=== PATIENT | female | born 1930 | race Caucasian/White ===

== ENCOUNTER 2016-04-28 11:01 | Inpatient (IN) | payer OTHER ==
--- NOTE | 2016-04-28 11:15 | CPEKG ---
Heart Rate: 80 RR Interval: 750 P-R Interval: 156 QRSD Interval: 86 QT Interval: 356 QTC Interval: 411 P [place]: 83 QRS [place]: 76 T Wave [place]: -52 EKG Severity - ABNORMAL ECG - EKG Impression: SINUS RHYTHM EKG Impression: NONSPECIFIC T ABNORMALITIES, DIFFUSE LEADS EKG Impression: similar to previous Electronically Signed By: Edmund Gonzales 28-Apr-2016 12:48:02
[2016-04-28] MEDS ORDERED: NS 1,000 ML IV ONE ×2 (11:17→12:48)
[2016-04-28 11:39] LABS: ANION GAP 14 mEq/L (8-16); CALCIUM 9.3 mg/dL (8.5-10.4); CARBON DIOXIDE 21 mEq/l (22-31); CHLORIDE 104 mEq/L (97-110); CREATININE 0.9 mg/dL (0.6-1.0); GLOMERULAR FILTRATION RATE 59; GLUCOSE 101 mg/dL (70-100); POTASSIUM 4.5 mEq/L (3.5-5.2); SODIUM 139 mEq/L (134-144)
[2016-04-28 11:59] LABS: % IMMATURE GRANULYOCYTES 0.5 % (0.0-1.1); ABSOLUTE IMMATURE GRANULOCYTES 0.08 10^3/uL (0.00-0.10); ADD DIFF? NO; ADD MORPH? NO; ADD SCAN? NO; ATYPICAL LYMPHOCYTE FLAG 0 (0-99); FRAGMENT RBC FLAG 0 (0-99); HEMATOCRIT 36.8 % (38.0-47.0); HEMOGLOBIN 12.6 g/dL (12.6-16.3); LEFT SHIFT FLG 10 (0-99); LIPEMIA HEMOLYSIS FLAG 90 (0-99); MEAN CELL HEMOGLOBIN 31.3 pg (27.9-34.1); MEAN CELL HEMOGLOBIN CONCENTR. 34.2 g/dL (32.4-36.7); MEAN CELL VOLUME 91.3 fL (81.5-99.8); PLATELET CLUMPS FLAG 0 (0-99); PLATELET COUNT 247 10^3/uL (150-400); RED BLOOD CELL COUNT 4.03 10^6/uL (4.18-5.33); RED CELL DISTRIBUTION WIDTH 13.2 % (11.5-15.2)
[2016-04-28 12:03] LABS: TROPONIN I 0.019 ng/mL (0-0.034)
--- NOTE | 2016-04-28 12:52 | EDPHY ---
H & P Stated Complaint: SYNCOPAL Time Seen by Provider: 04/28/16 12:39 HPI/ROS: CHIEF COMPLAINT: Syncope HISTORY OF PRESENT ILLNESS: The patient is an 86-year-old female who comes to the emergency department with her after a syncopal event. She was in an exercise class with small weights when she lost consciousness and fell to the ground. She denies having any pain or injury from the fall. She denies any chest pain or palpitations or shortness of breath prior to the episode or after. She does not take blood thinners. She does not have any diarrhea or vomiting. She used to have a diagnosis of Crohn's disease but states that she no longer does and that Dr. Waddell took her off of her Remicade. She was admitted this summer under similar circumstances and at that time found to have C difficile and pneumonia. She was treated for these appropriately. she has never had any history of cardiac disease. REVIEW OF SYSTEMS: Constitutional: denies: chills, fever, recent illness, recent injury EENTM: denies: blurred vision, double vision, nose congestion Respiratory: denies: cough, shortness of breath Cardiac: See HPI Gastrointestinal/Abdominal: denies: abdominal pain, diarrhea, nausea, vomiting, blood streaked stools Genitourinary: denies: dysuria, frequency, hematuria, pain Musculoskeletal: denies: joint pain, muscle pain Skin: denies: lesions, rash, jaundice, bruising Neurological: denies: headache, numbness, paresthesia, tingling, dizziness, weakness Hematologic/Lymphatic: denies: blood clots, easy bleeding, easy bruising Immunologic/allergic: denies: HIV/AIDS, transplant EXAM: GENERAL: Well-appearing, well-nourished and in no acute distress. HEAD: Atraumatic, normocephalic. EYES: Pupils equal round and reactive to light, extraocular movements intact, sclera anicteric, conjunctiva are normal. ENT: TMs normal, nares patent, oropharynx clear without exudates. Moist mucous membranes. NECK: Normal range of motion, supple without lymphadenopathy or JVD. No tenderness LUNGS: Breath sounds clear to auscultation bilaterally and equal. No wheezes rales or rhonchi. HEART: Regular rate and rhythm without murmurs, rubs or gallops. ABDOMEN: Soft, nontender, normoactive bowel sounds. No guarding, no rebound. No masses appreciated. BACK: No CVA tenderness, no spinal tenderness, step-offs or deformities EXTREMITIES: Normal range of motion, no pitting or edema. No clubbing or cyanosis. NEUROLOGICAL: Cranial nerves II through XII grossly intact. Normal speech, normal gait. 5/5 strength, normal movement in all extremities, normal sensation PSYCH: Normal mood, normal affect. SKIN: Warm, dry, normal turgor, no visible rashes or lesions. Source: Patient Exam Limitations: No limitations - Personal History Current Tetanus/Diphtheria Vaccine: Unsure Current Tetanus Diphtheria and Acellular Pertussis (TDAP): Unsure - Medical/Surgical History Hx Asthma: No Hx Chronic Respiratory Disease: No Hx Diabetes: No Hx Cardiac Disease: No Hx Renal Disease: No Hx Cirrhosis: No Hx Alcoholism: No Hx HIV/AIDS: No Hx Splenectomy or Spleen Trauma: No Other PMH: Crohns w/remicaide infusions, - Family History Significant Family History: No pertinent family hx - Social History Smoking Status: Never smoked Alcohol Use: None Drug Use: None Constitutional: Initial Vital Signs Temperature (C) 37 C 04/28/16 11:01 Heart Rate 81 04/28/16 11:01 Respiratory Rate 19 04/28/16 11:01 Blood Pressure 156/77 H 04/28/16 11:01 O2 Sat (%) 92 04/28/16 11:01 O2 Delivery Mode Room Air Allergies/Adverse Reactions: No Known Allergies Allergy (Unverified 07/12/14 11:29) Home Medications: Medication Instructions Recorded Ferrous Sulfate [Ferrous Sulf 325 325 mg PO DAILY 10/25/15 MG (*)] Multivitamins [Multivitamin (*)] 1 each PO DAILY 04/28/16 Medical Decision Making - Diagnostics EKG Interpretation: An EKG obtained and was read and documented in trace view. Please see trace view for full reading and report. Sinus rhythm inferior T-wave inversions similar to previous ED Course/Re-evaluation: The patient does not wish to stay in the hospital. She does appear slightly dehydrated. She is afebrile. Her vital signs are stable. Glucose is a normal limits. Her previous syncopal episode was associated with pneumonia and C diff. She denies having any diarrhea or shortness of breath or cough today. I will obtain a chest x-ray. 2:30 p.m. we discussed the x-ray results. Initially the patient had refused it. It does reveal bilateral pneumonia. I recommended admission. Also further workup for her syncope. She does feel better with hydration. She and her agree with this plan. I discussed the case with Dr. Nannette Hernandez who will admit. I have started her on Levaquin. Lactic and blood cultures ordered. Differential Diagnosis: Partial list of the Differential diagnosis considered include but were not limited to; pneumonia, bronchitis, syncope, arrhythmia, dehydration, hypoglycemia and although unlikely based on the history and physical exam, I also considered seizure, acute coronary disease. - Data Points Laboratory Results: Laboratory Results 04/28/16 11:50 04/28/16 10:50 Medications Given: Discontinued Medications Sodium Chloride (Ns) 1,000 mls @ 0 mls/hr IV EDNOW ONE PRN Reason: Wide Open Stop: 04/28/16 11:18 Last Admin: 04/28/16 11:20 Dose: 1,000 mls Sodium Chloride (Ns) 1,000 mls @ 0 mls/hr IV ONCE ONE PRN Reason: Wide Open Stop: 04/28/16 12:49 Last Admin: 04/28/16 12:00 Dose: 500 mls Levofloxacin/Dextrose (Levaquin 750 Mg (Premix)) 150 mls @ 100 mls/hr IV DAILY HIRA PRN Reason: Protocol Stop: 05/28/16 14:59 Last Admin: 04/28/16 15:29 Dose: 150 mls Sodium Chloride (Ns *For Sepsis Order Set Only*) 1,388 ml IV EDNOW ONE Stop: 04/28/16 14:37 Last Admin: 04/28/16 15:55 Dose: Not Given Departure - Departure Disposition: [facility] Inpatient Acute Clinical Impression: Community acquired pneumonia Syncope Qualifiers: Syncope type: unspecified Qualifier Code: (R55) Syncope and collapse Condition: Fair
--- NOTE | 2016-04-28 14:03 | DX ---
Chest, Two Views April 28, 2016, 1316 Hours History: Chest pain, syncope. Comparison: October 2015. Findings: Cardiac silhouette is within normal range. Alveolar opacity in the left lower lobe probab ly representing pneumonia. Opacity also in the anterior segment of the right upper lobe probably repr esenting pneumonia. Bilateral peribronchial thickening. No pleural effusion or pneumothorax. Impressions 1. Left lower lobe pneumonia. 2. Right upper lobe anterior segment pneumonia. 3. Consider CT chest imaging.
[2016-04-28] MEDS ORDERED: NS 1,000 ML BAG *FOR SEPSIS ORDER SET ONLY IV ONE (14:36)
[2016-04-28 14:46] LABS: COLOR AMBER; LEUKOCYTE ESTERASE,URINE NEGATIVE (NEGATIVE); NITRITE,URINE NEGATIVE (NEGATIVE)
[2016-04-28 15:56] LABS: APTT 25.9 SEC (23.0-38.0); INR 1.08 (0.83-1.16); PROTIME(PATIENT) 13.9 SEC (12.0-15.0)
--- NOTE | 2016-04-28 15:57 | GHP ---
[f rep st] HISTORY AND PHYSICAL DATE OF ADMISSION: 04/28/2016 CHIEF COMPLAINT: Syncope. HISTORY OF PRESENT ILLNESS: Patient is a pleasant 86-year-old female with history of Crohn's rheumatoid arthritis who presented after a syncopal event. She was in her exercise class this morning and suddenly fainted. Per her , when she awoke she was confused for about a minute, was sweating and complained of nausea. There were no jerking movements. The patient denies prodrome of symptoms including chest pain, shortness of breath, nausea, vomiting , clamminess or palpitations. She had a similar presentation in October with a syncopal episode and found to have pneumonia and C difficile. She denies fevers, chills or sweats. She has had decreased p.o. intake. Per her , has been sleeping more at night, up to 8-9 hours plus a nap during the day. She denies nausea, vomiting or diarrhea and no headache. The says there has been flu like symptoms in their living facility. REVIEW OF SYSTEMS: A complete 10-point review of systems, negative except as noted in HPI. PAST MEDICAL HISTORY: 1. Crohn's. 2. Rheumatoid arthritis. 3. C difficile in October 2015. 4. Community-acquired pneumonia in October 2015. 5. Dementia. PAST SURGICAL HISTORY: None. MEDICATIONS: None. SOCIAL HISTORY: Lives at the [facility] with her in the independent portion. Has 3 kids. No alcohol, tobacco or illicits. FAMILY HISTORY: Dad with hypertension. PHYSICAL EXAM: VITAL SIGNS: Temperature is 37.2, blood pressure 163/89, heart rate 80s, respiration 16, 91% on room air. GENERAL: Patient is lying up in bed , in no acute distress. HEENT: PERRLA. EOMI. Dry mucous membranes. Oropharynx clear without exudate or erythema. CARDIAC: Regular rate and rhythm. No murmurs, gallops, or rubs. LUNGS: Clear to auscultation bilaterally. ABDOMEN: Soft, nontender, nondistended. Positive bowel sounds. No suprapubic tenderness. MUSCULOSKELETAL: Moving all 4 extremities. NEURO: 2 through 12 intact. No focal deficits. PSYCH: Alert and oriented x3. LABS: WBC 17, hemoglobin 12, hematocrit 36, platelets 247. Lactate is 1.3. Sodium is 139, potassium 4.5, chloride 104, carbon dioxide 21, BUN 13, creatinine 0.9, anion gap 14, glucose 101, calcium 9.3. Troponin 0.019. EKG is personally reviewed by me. ST flattening in V4 through V6. Chest x-ray is personally reviewed by me. Small left lower lobe opacity, no effusion. ASSESSMENT/PLAN: 1. Syncope, differential includes infection versus cardiac versus dehydration. The patient does not elicit overt infectious symptoms but has had decreased p.o. intake and more fatigued. She has an elevated white count to 17. There is a subtle left lower lobe opacity noted on x-ray. She was treated with Levaquin in the emergency room. I will continue this medication. Also check influenza and a UA. Subtle left lower lobe pneumonia. Blood cultures are pending. Will monitor patient on telemetry. EKG and troponin negative for ischemia. Repeat troponin. 2. Dementia. Patient lives independently at the [facility] with her . 3. Accelerated hypertension. Suspect this is due to acute illness. Will monitor. 4. Diet: Regular. 5. DVT prophylaxis: Low molecular weight heparin. DISPOSITION: Patient warrants observation admission given acute syncopal episode warranting serial troponin and telemetry. If patient is feeling better in the morning, suspect that she can be discharged with her . /[id number]/MODL MTDD
[2016-04-29 06:08] LABS: ANION GAP 12 mEq/L (8-16); CALCIUM 9.3 mg/dL (8.5-10.4); CARBON DIOXIDE 23 mEq/l (22-31); CHLORIDE 105 mEq/L (97-110); CREATININE 0.8 mg/dL (0.6-1.0); GLOMERULAR FILTRATION RATE > 60; GLUCOSE 107 mg/dL (70-100); POTASSIUM 4.3 mEq/L (3.5-5.2); SODIUM 140 mEq/L (134-144)
[2016-04-29 06:20] LABS: HEMATOCRIT 37.1 % (38.0-47.0); HEMOGLOBIN 12.8 g/dL (12.6-16.3); MEAN CELL HEMOGLOBIN 30.9 pg (27.9-34.1); MEAN CELL HEMOGLOBIN CONCENTR. 34.5 g/dL (32.4-36.7); MEAN CELL VOLUME 89.6 fL (81.5-99.8); RED BLOOD CELL COUNT 4.14 10^6/uL (4.18-5.33); RED CELL DISTRIBUTION WIDTH 13.2 % (11.5-15.2)
[2016-04-29] MEDS: FERROUS SULFATE 325 MG TAB PO SCH (09:26)
[2016-04-29] MEDS: ENOXAPARIN 30 MG/0.3 ML SYR SC SCH (09:26)
[2016-04-29] MEDS: MULTIVITAMINS 1 EACH TAB PO SCH (09:26)
--- NOTE | 2016-04-29 10:09 | HOSPPROG ---
Hospitalist Progress Note Assessment/Plan: Patient is a 86y/o female who had a syncopal event after doing an exercise class. Reviewed her H & P, PMH, today is my first day caring for Ada. #. CAP Levaquin/ chest xray shows a left lower lobe #. leukocytosis white blood cell count increased today awaiting blood cultures negative for influenza #. syncopal event troponin negative patient's was stating she was doing a workout class and fell and has no recollection will get an echocardiogram for further evaluation reviewed her compliance monitor. She has been in sinus rhythm. will ask the nursing staff to do 1 set of orthostatic vital signs #. history of Clostridium difficile in 2016 because of the elevated white blood cell count, will prophylactically treat her with oral vancomycin twice daily while on antibiotics #. dementia this appears to be very mild during my interview. She lives independently at the [facility] with her #. hypertension blood pressure is 142/80. Will continue monitoring 3. history of Crohn's disease/treated with Remicade has seen Dr. Waddell in the past for this #. DVT prophylaxis/ low molecular weight heparin #. plan. Patient require another midnight stay. I am concerned that her white blood cell count has increased. Will get repeat labs in the morning, and echocardiogram, and a set of orthostatic vital signs. Subjective: Ada has no complaints of pain. Overall is feeling fine Objective: Vital Signs Temp Pulse Resp BP Pulse Ox 36.6 C 79 16 142/80 H 94 04/29/16 08:00 04/29/16 08:00 04/29/16 08:00 04/29/16 08:00 04/29/16 08:00 Laboratory Results 04/29/16 05:36 04/29/16 05:36 04/28/16 04/29/16 04/30/16 05:59 05:59 05:59 Intake Total 1500 Output Total 550 Balance 950 PT 13.9 SEC (12.0-15.0) 04/28/16 15:48 INR 1.08 (0.83-1.16) 04/28/16 15:48 - Physical Exam Constitutional: no apparent distress, appears nourished, not in pain Eyes: PERRL, EOMI Cardiovascular: regular rate and rhythym, no murmur, rub, or gallop Respiratory: no respiratory distress, no rales or rhonchi, reduced air movement ( left base) Gastrointestinal: normoactive bowel sounds, soft, non-tender abdomen Musculoskeletal: full muscle strength, no muscle tenderness Neurologic: AAOx3 Psychiatric: interacting appropriately, not anxious ICD10 Worksheet Patient Problems: Problems Problem Status Diagnosed Chronic Disease Mgmt/Transitional Care Acute Community acquired pneumonia Acute Leukocytosis Acute Syncope Acute C. difficile diarrhea Acute 10/26/15
[2016-04-29] MEDS: VANCOMYCIN 125 MG/2.5 ML UDL PO SCH ×2 (15:09→20:06)
--- NOTE | 2016-04-29 16:54 | ECHO ---
[id number] + + [address] : : [place] [address] : : [phone] + + Adult Echocardiographic Report + + :Name: DEB MESSINA LStudy Date: 04/29/2016 01:41 PM : : Hospital Admission Number: [id number] Lo cation: 394: :: 1930 Gender: Female Height: 61 in : :Age: 86 yrs Race: UN Weight: 10 1 lb : :Reason For Study: Syncopal event : : BSA: 1.4 m eters2 : + + MMode/2D Measurements & Calculations IVSd: 0.54 cm LVIDd: 3.6 cm FS: 39.9 % Ao root diam: LVPWd: 0.74 cm LVIDs: 2.1 cm EDV(Teich): 3.1 cm 53.5 ml LA dimension: ESV(Teich): 3.3 cm 15.2 ml EF(Teich): 71.5 % LVLd ap4: 6.1 cm SV(MOD-sp4): EDV(MOD-sp4): 23.0 ml 33.0 ml LVLs ap4: 4.8 cm ESV(MOD-sp4): 10.0 ml EF(MOD-sp4): 69.7 % Normal Measurement Values: + + :LVIDd (3.5-5.7cm) IVSd (0.6-1.1cm) LVPWd (0.6-1.1cm) Aortic Root (2.0-3.7cm)Left Atrium (1.5-4.0cm): :LV Vol(d) (76-115ml) LV Vol(s) (29-48ml) Ejec Fraction (50-65%)PV Bob (0.6- 1.2m/s) TV Bob (0.4-1.0m/s) : :MV E Bob (0.8-1.0m/s)MV A Bob (0.3-1.0m/s)LVOT Bob (0.7-1.2m/s) Asc Ao Bob ( 0.9-1.8m/s) : + + Doppler Measurements & Calculations MV E max bob: 53.3 cm/sec Ao V2 max: 100.4 cm/sec TR max bob: 244.3 cm/sec MV A max bob: 74.0 cm/sec Ao max P.0 mmHg TR max P.9 mmHg MV E/A: 0.72 RAP systole: 5.0 mmHg RVSP(TR): 28.9 mmHg Left Ventricle The left ventricle is normal in size. There is normal left ventricular wall thickness. Left ventricular systolic function is normal. Ejection Fraction = 65-70%. Grade I diastolic dysfunction. No regional wall motion abnormalities noted. Right Ventricle The right ventricle is normal in size and function. Atria The left atrial size is normal. Right atrial size is normal. Mitral Valve The mitral valve is normal in structure and function. Prolapse of the posterior mitral leaflet(s). There is no mitral valve stenosis. There is trace to mild mitral regurgitation. Tricuspid Valve Normal tricuspid valve. There is moderate tricuspid regurgitation. Right ventricular systolic pressure is normal. Aortic Valve The aortic valve is trileaflet. The aortic valve opens well. There is no aortic stenosis. There is no aortic insufficiency. Pulmonic Valve The pulmonic valve is normal in structure and function. There is no pulmonic valvular regurgitation. Great Vessels The aortic root is normal size. Pericardium/Pleural Trivial anterior pericardial effusion. Conclusion A complete two-dimensional transthoracic echocardiogram was performed (2D, M-mode, Doppler and color flow Doppler). Left ventricular systolic function is normal. Ejection Fraction = 65-70%. Grade I diastolic dysfunction Normal LV wall motion There is trace to mild mitral regurgitation. There is moderate tricuspid regurgitation. Right ventricular systolic pressure is normal. Trivial anterior pericardial effusion No prior echo Final Reading Physician: Dr Cece Chin electronically signed on 04/29/2016 04:52 PM Ordering Physician: Michelle Siddiqui Performed By: Kacie Schuler, NAELCS
[2016-04-30 04:34] VITALS: PULSE 91
[2016-04-30 05:30] LABS: % IMMATURE GRANULYOCYTES 0.5 % (0.0-1.1); ABSOLUTE IMMATURE GRANULOCYTES 0.07 10^3/uL (0.00-0.10); ADD DIFF? NO; ADD MORPH? NO; ADD SCAN? NO; ATYPICAL LYMPHOCYTE FLAG 0 (0-99); FRAGMENT RBC FLAG 0 (0-99); HEMATOCRIT 34.4 % (38.0-47.0); HEMOGLOBIN 11.9 g/dL (12.6-16.3); LEFT SHIFT FLG 10 (0-99); LIPEMIA HEMOLYSIS FLAG 90 (0-99); MEAN CELL HEMOGLOBIN 31.2 pg (27.9-34.1); MEAN CELL HEMOGLOBIN CONCENTR. 34.6 g/dL (32.4-36.7); MEAN CELL VOLUME 90.1 fL (81.5-99.8); MEAN PLATELET VOLUME 11.2 fL (8.7-11.7); PLATELET CLUMPS FLAG 0 (0-99); PLATELET COUNT 225 10^3/uL (150-400); RED BLOOD CELL COUNT 3.82 10^6/uL (4.18-5.33); RED CELL DISTRIBUTION WIDTH 13.1 % (11.5-15.2)
[2016-04-30 05:50] LABS: ANION GAP 9 mEq/L (8-16); CARBON DIOXIDE 23 mEq/l (22-31); CHLORIDE 105 mEq/L (97-110); CREATININE 0.8 mg/dL (0.6-1.0); GLOMERULAR FILTRATION RATE > 60; GLUCOSE 99 mg/dL (70-100); SODIUM 137 mEq/L (134-144)
[2016-04-30] MEDS: ENOXAPARIN 30 MG/0.3 ML SYR SC SCH (09:36)
[2016-04-30] MEDS: FERROUS SULFATE 325 MG TAB PO SCH (09:37)
[2016-04-30] MEDS: VANCOMYCIN 125 MG/2.5 ML UDL PO SCH (09:37)
[2016-04-30] MEDS: MULTIVITAMINS 1 EACH TAB PO SCH (09:37)
--- NOTE | 2016-04-30 10:02 | HOSPPROG ---
Hospitalist Progress Note Assessment/Plan: Patient is a 86y/o female who had a syncopal event after doing an exercise class. #. CAP Levaquin/ chest xray shows a left lower lobe blood cx show no growth thus far #. leukocytosis improved today negative for influenza #. syncopal event troponin negative patient's was stating she was doing a workout class and fell and has no recollection echocardiogram Shows normal LV function. EF 65-70%. 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 She has been in sinus rhythm. orthostatic stable/ will arrange for her to get a Holter monitor and further follow up with Cardiology suspect she may have been slightly dehydrated when she attended her exercise class #. history of Clostridium difficile in 2016 no diarrhea #. dementia this appears to be very mild during my interview. She lives independently at the [facility] with her #. hypertension blood pressure is 141/75 3. history of Crohn's disease/treated with Remicade has seen Dr. Waddell in the past for this #. DVT prophylaxis/ low molecular weight heparin #. plan. discharge home. Due to the snow, case Management is actively involved arranging for her to get home Subjective: Ada is anxious to be discharged home immediately. Objective: Vital Signs Temp Pulse Resp BP Pulse Ox 36.5 C 91 18 141/75 H 91 L 04/30/16 04:00 04/30/16 04:00 04/30/16 04:00 04/30/16 04:00 04/30/16 04:00 Laboratory Results 04/30/16 05:17 04/30/16 05:17 04/29/16 04/30/16 05/01/16 05:59 05:59 05:59 Intake Total 800 Output Total 600 Balance 200 PT 13.9 SEC (12.0-15.0) 04/28/16 15:48 INR 1.08 (0.83-1.16) 04/28/16 15:48 - Physical Exam Constitutional: no apparent distress, appears nourished Eyes: PERRL Ears, Nose, Mouth, Throat: hearing normal Cardiovascular: regular rate and rhythym, no murmur, rub, or gallop Respiratory: no respiratory distress, no rales or rhonchi, reduced air movement ( left base) Gastrointestinal: normoactive bowel sounds, soft, non-tender abdomen Skin: warm Musculoskeletal: full muscle strength Neurologic: AAOx3 Psychiatric: interacting appropriately, poor insight, poor memory ICD10 Worksheet Patient Problems: Problems Problem Status Diagnosed Chronic Disease Mgmt/Transitional Care Acute Community acquired pneumonia Acute Leukocytosis Acute Syncope Acute C. difficile diarrhea Acute 10/26/15
[2016-04-30 10:35] VITALS: BP 115/74; RESP 16; TEMP 97.8; O2SAT 92
--- NOTE | 2016-04-30 11:28 | GDS ---
[f rep st] DISCHARGE SUMMARY DISCHARGE DIAGNOSES: 1. Community-acquired pneumonia. 2. Leukocytosis. 3. Syncopal event. 4. History of Clostridium difficile in 2016. 5. Dementia. 6. Hypertension. 7. History of Crohn disease, had been treated with Remicade in the past. BRIEF HISTORY OF PRESENT ILLNESS: Patient is an 86-year-old female with a history of Crohn's inflammatory arthritis, who presented after a syncopal event. She was in her exercise class and suddenly fainted. Per her , when she awoke she was confused. She had no prodrome of symptoms. Per her , she has not been taking in as much intake. She was admitted for further evaluation. HOSPITAL COURSE: 1. Community-acquired pneumonia. She had a chest x-ray performed which showed a left lower lobe pneumonia and right upper lobe anterior segment pneumonia. She was treated with Levaquin. Her current blood cultures show no growth. Recommended that she follow up with her primary care provider and get a repeat chest x-ray in 4-6 weeks. 2. Leukocytosis. This is improved. She has been afebrile. She is negative for influenza. 3. Syncopal event. Troponin are negative. She has been in a sinus rhythm. An echocardiogram was performed which showed normal LV function with an EF of 65 % to 70%. She has moderate TR and mild MR. Her orthostatic vital signs are stable. She will get an outpatient Holter monitor and follow up with Cardiology. Cardiology will contact her tomorrow for follow up. 4. Clostridium difficile in 2016. No diarrhea. 5. Dementia, overall stable. 6. Hypertension. Blood pressure is 141/75. 7. History of Crohn disease. This was treated with Remicade in the past. Further follow up with Dr. Waddell. PENDING LABS AND TESTS: None. CONDITION AT DISCHARGE: Stable. Blood pressure is 115/74, heart rate is 91, respiratory rate 16, O2 saturation on room air 92%, temperature 36.6 Celsius. MEDICATIONS AT DISCHARGE: Please see the EMR. DISCHARGE INSTRUCTIONS: 1. Stay well hydrated and eat well before working out. 2. [facility] will call her to arrange for Holter monitor to be sent to her and to get further followup appointment. 3. Take Levaquin as prescribed. Recommend that she take it easy while on this medication because it can cause tendon rupture. 4. Get a repeat chest x-ray in 4-6 weeks to make sure her pneumonia is cleared up. Greater than 30 minutes discharging and coordinating care. /[id number]/MODL MTDD
== END 2016-04-30 12:45 | disposition home or self-care (01) | DRG 195 ==
LOC: EDUNIT# → F3E 16:45 → OBSVTOIN 04-29 10:03
PROVIDERS: ADMIT Internal Medicine; ATTEND Student in an Organized Health Care Education/Training Program
DX: J18.9 Pneumonia, unspecified organism (principal); R55 Syncope and collapse; I10 Essential (primary) hypertension; F03.90 Unspecified dementia, unspecified severity, without behavioral disturbance, psychotic disturbance, mood disturbance, and anxiety
CPT/HCPCS: G0378; J1650; J1956

== ENCOUNTER → 2016-06-08 | Outpatient (CLI) | payer OTHER ==
--- NOTE | 2016-06-08 14:33 | DX ---
Chest, Two Views - June 08, 2015, at 1351 hours History: Pneumonia, follow up J18.8. Comparison: Chest x-ray April 28, 2016 CT chest October 2015. Findings: Cardiac silhouette is within normal range. Hyperinflation of the lungs, consistent with CRISIS MENTAL HEALTH THERAPIST D. Lower thoracic levoscoliosis. Atherosclerotic aorta. Increasing opacity in the left lower lobe posterior basal segment and in the lingula, consistent with worsening pneumonia. Increased linear density in the right major fissure representing scarring or pn eumonitis in the anterior segment of the right upper lobe. Impression: 1. Worsening left lower lobe and lingula pneumonia. 2. Probable pneumonia or atelectasis in the anterior segment of the right upper lobe with linear dens ity. 3. COPD. 4. Consider additional CT chest imaging if clinically indicated.
== END ==
LOC: BMCIMAGING 13:55
PROVIDERS: ATTEND Internal Medicine
DX: J18.1 Lobar pneumonia, unspecified organism (principal); J44.9 Chronic obstructive pulmonary disease, unspecified

== ENCOUNTER → 2016-06-10 | Outpatient (CLI) | payer OTHER ==
[~2016-06-10] MED LIST: IOPAMIDOL (ISOVUE-300) 100 ML BTL IV ONE
== END ==
LOC: FIMAGING 13:39
PROVIDERS: ATTEND Internal Medicine
DX: R91.8 Other nonspecific abnormal finding of lung field (principal)
CPT/HCPCS: 71260; Q9967

== ENCOUNTER → 2016-06-23 | Outpatient (CLI) | payer OTHER | LOC: BHFA 16:00 | PROVIDERS: ATTEND Internal Medicine | DX: R55 Syncope and collapse (principal) ==

== ENCOUNTER → 2016-11-30 | Outpatient (CLI) | payer OTHER | LOC: BMCIMAGING 15:07 | PROVIDERS: ATTEND Internal Medicine | DX: R63.4 Abnormal weight loss (principal) | CPT/HCPCS: 86334-90 ==

== ENCOUNTER 2016-12-07 12:28 | Inpatient (IN) | payer OTHER ==
[2016-12-07] MEDS ORDERED: NS 1,000 ML IV ONE (12:56)
--- NOTE | 2016-12-07 14:26 | CPEKG ---
Heart Rate: 78 RR Interval: 769 P-R Interval: 144 QRSD Interval: 82 QT Interval: 368 QTC Interval: 420 P Galt: 87 QRS Galt: 76 T Wave Galt: 51 EKG Severity - NORMAL ECG - EKG Impression: SINUS RHYTHM Electronically Signed By: Natalie Lares 07-Dec-2016 21:42:40
--- NOTE | 2016-12-07 14:42 | EDPHY ---
H & P Time Seen by Provider: 12/07/16 14:17 HPI/ROS: CHIEF COMPLAINT: Lack of appetite, generalized weakness HISTORY OF PRESENT ILLNESS: The patient is an 86-year-old female presenting with lack of appetite. Onset of lack of appetite 2.5 weeks ago. Associated with gradually an 8 lb weight loss, increasing generalized weakness and fatigue. She has been mainly lying in bed and sleeping a lot. The patient denies abdominal pain, nausea, vomiting, or diarrhea. The patient and her feel that the symptoms are secondary to Crohn's disease. However she has no abdominal pain or GI symptoms. The patient was on Remicade for 10 years after presenting with similar symptoms. She was asymptomatic during that 10 year period. She was told to stop Remicade 1 year ago. Over the past 2 and half weeks, she has seen her PCP, a GI specialist and tin dipper for the symptoms. Patient is told she has severe anemia and an outpatient abdomen CT was ordered. REVIEW OF SYSTEMS: A comprehensive 10 point review of systems is otherwise negative aside from elements mentioned in the history of present illness. Past Medical/Surgical History: Anemia, Crohn's previously on Remicade. Social History: . Lives with at home. Smoking Status: Never smoked Physical Exam: General Appearance: Alert, pleasant Eyes: Pupils equal and round, no conjunctival pallor or injection ENT, Mouth: Mucous membranes moist Neck: Normal inspection Respiratory: Lungs are clear to auscultation Cardiovascular: Regular rate and rhythm Gastrointestinal: Abdomen is soft and non-tender Neurological: A&O, nonfocal exam Skin: Pale appearing Extremities: Normal inspection, no tenderness Psychiatric: Mood and affect normal Constitutional: Initial Vital Signs Temperature (C) 36.9 C 12/07/16 12:49 Heart Rate 86 12/07/16 12:49 Respiratory Rate 16 12/07/16 12:49 Blood Pressure 121/62 H 12/07/16 12:49 O2 Sat (%) 94 12/07/16 12:49 O2 Delivery Mode Room Air Allergies/Adverse Reactions: No Known Allergies Allergy (Verified 12/07/16 12:48) Home Medications: Medication Instructions Recorded Bifidobacterium Infantis [Align] 4 mg PO DAILY 12/07/16 Multivitamins [Multivitamin (*)] 1 each PO DAILY 12/07/16 Medical Decision Making - Diagnostics EKG Interpretation: EKG interpreted by me reveals normal sinus rhythm, normal axis, normal intervals , ST and T segments normal. Interpretation: normal EKG Imaging: Discussed imaging studies w/ director of cardiology service line Radiologist ED Course/Re-evaluation: This patient presents with lack of appetite, generalized weakness and leukocytosis. Old medical record reviewed. IV normal saline given for dehydration. Plan to check lab work. CT abdomen/pelvis ordered. CT is unchanged from prior CT I reveals inflammation of the descending colon. Please see imaging section for the full radiology report. 1610: I consulted the hospitalist, Dr. Fermin, who accepts patient for admission. Differential Diagnosis: Differential diagnosis includes though it is not limited to appendicitis, cholecystitis, diverticulitis, pyelonephritis, bowel perforation, small bowel obstruction. - Data Points Laboratory Results: Laboratory Results 12/07/16 15:16 12/07/16 15:16 Medications Given: Enoxaparin Sodium (Lovenox) 40 mg SC DAILY HIRA Stop: 06/06/17 08:59 Last Admin: 12/08/16 11:49 Dose: Not Given Sodium Chloride (Ns) 1,000 mls @ 100 mls/hr IV CONT HIRA Stop: 06/05/17 17:29 Last Admin: 12/07/16 18:09 Dose: 1,000 mls Megestrol Acetate (Megace) 40 mg PO QID HIRA Stop: 06/06/17 15:59 Last Admin: 12/08/16 18:19 Dose: Not Given Miscellaneous Medication (Bifidobacterium Infantis [Align]) 4 mg PO DAILY HIRA Stop: 06/06/17 08:59 Last Admin: 12/08/16 09:18 Dose: Not Given Multivitamins (Tab-A-Jayla) 1 each PO DAILY HIRA Stop: 06/06/17 08:59 Last Admin: 12/08/16 09:14 Dose: 1 each Pantoprazole Sodium (Protonix) 40 mg PO BID HIRA Stop: 06/05/17 20:59 Last Admin: 12/08/16 09:14 Dose: 40 mg Sucralfate (Carafate) 1 gm PO ACHS HIRA Stop: 06/05/17 20:59 Last Admin: 12/08/16 18:19 Dose: Not Given Discontinued Medications Diphtheria/Tetanus/Acell Pertussis (Boostrix) 0.5 ml IM .ONCE ONE Stop: 12/07/16 14:47 Last Admin: 12/07/16 15:07 Dose: Not Given Sodium Chloride (Ns) 1,000 mls @ 0 mls/hr IV EDNOW ONE; Wide Open PRN Reason: Protocol Stop: 12/07/16 12:57 Last Admin: 12/07/16 14:33 Dose: 1,000 mls Cefazolin Sodium/Dextrose (Ancef 1 Gm (Premix)) 50 mls @ 200 mls/hr IV EDNOW ONE PRN Reason: Protocol Stop: 12/07/16 14:59 Last Admin: 12/07/16 18:15 Dose: Not Given Departure - Departure Disposition: [facility] Inpatient Acute Clinical Impression: Generalized weakness Failure to thrive Qualifiers: Failure to thrive age range: in adult Qualified Code(s): R62.7 - Adult failure to thrive Condition: Fair Report Scribed for: Natalie Lares Report Scribed by: Park Odonnell Date of Report: 12/07/16 Time of Report: 14:32 Physician Review and Approval Statement: 12/07/16 14:32 Portions of this note were transcribed by a chief medical physicist. I personally performed the history, physical exam, and medical decision-making; and confirmed the accuracy of the information in the transcribed note.
[2016-12-07] MEDS ORDERED: TDAP ADULT 0.5 ML INJ (BOOSTRIX) IM ONE (14:46)
[2016-12-07 15:30] LABS: % IMMATURE GRANULYOCYTES 0.7 % (0.0-1.1); ABSOLUTE IMMATURE GRANULOCYTES 0.11 10^3/uL (0.00-0.10); ADD DIFF? NO; ADD MORPH? NO; ADD SCAN? NO; ATYPICAL LYMPHOCYTE FLAG 10 (0-99); FRAGMENT RBC FLAG 0 (0-99); HEMATOCRIT 35.1 % (38.0-47.0); HEMOGLOBIN 11.5 g/dL (12.6-16.3); LEFT SHIFT FLG 10 (0-99); LIPEMIA HEMOLYSIS FLAG 80 (0-99); MEAN CELL HEMOGLOBIN 29.5 pg (27.9-34.1); MEAN CELL HEMOGLOBIN CONCENTR. 32.8 g/dL (32.4-36.7); MEAN PLATELET VOLUME 9.3 fL (8.7-11.7); PLATELET CLUMPS FLAG 0 (0-99); PLATELET COUNT 547 10^3/uL (150-400); RED CELL DISTRIBUTION WIDTH 12.7 % (11.5-15.2)
[2016-12-07] MEDS ORDERED: IOPAMIDOL (ISOVUE-300) 100 ML BTL ONE (15:37)
[2016-12-07 15:44] LABS: ANION GAP 7 mEq/L (8-16); CARBON DIOXIDE 25 mEq/l (22-31); CHLORIDE 100 mEq/L (97-110); CREATININE 0.8 mg/dL (0.6-1.0); GLOMERULAR FILTRATION RATE > 60; GLUCOSE 83 mg/dL (70-100); POTASSIUM 4.6 mEq/L (3.5-5.2); SODIUM 132 mEq/L (134-144)
[2016-12-07] MEDS ORDERED: ACETAMINOPHEN 325 MG TAB PO PRN (17:18)
[2016-12-07] MEDS ORDERED: ONDANSETRON 4 MG/2 ML VIAL IVP PRN (17:18)
[2016-12-07] MEDS ORDERED: ONDANSETRON DISINTEGRATING 4 MG TAB PO PRN (17:18)
--- NOTE | 2016-12-07 17:48 | PDGENHP ---
History and Physical - Chief Complaint Acute anorexia - History of Present Illness PCP: Dr. Brambila GI: Dr. Waddell Heme: Dr. Mims HPI: 86 yo F p/w acute anorexia characterized as very poor oral intake of both solids and liquids with associated fatigue and declining ambulatory abilities, with onset of symptoms 2.5 weeks ago, duration persistent thereafter. She denies any overt nausea/abdominal pain, does have approx 1 loose, non-bloody BM daily. She denies urinary symptoms, denies fever/chills, denies dysphagia. She reports that she feels hungry, but then her also states that often, after just a couple bites of food, patient stops eating w/o particular explanation. This is in the context of approx 6 month "decline" per , occurring approx 1 year after stopping Remicade, which she had been receiving q 2 weeks for the past 15 years. She been seen by her PCP office three times for this issue in the recent past, and has also seen Dr. Mims for persistent leukocytosis (believed to be 2/2 MGUS) recently. History Information - Allergies/Home Medication List Allergies/Adverse Reactions: No Known Allergies Allergy (Verified 12/07/16 12:48) Home Medications: Bifidobacterium Infantis [Align] 4 mg PO DAILY 12/07/16 [Last Taken 12/06/16] Multivitamins [Multivitamin (*)] 1 each PO DAILY 12/07/16 [Last Taken 12/06/16] I have personally reviewed and updated: family history, medical history, social history, surgical history - Past Medical History Additional medical history: Reported Crohn's disease w/ 15 years of remicade, stopped 18 months ago b/c no active symptoms. Dementia w/ baseline AAOx3 and able to converse, main sx is perseveration and poor insight. HTN. C.Diff. 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 Review of Systems ROS: 10pt was reviewed & negative except for what was stated in HPI & below Constitutional: Reports: weakness, weight loss, other (fatigue, anorexia) Physical Exam Temp Pulse Resp BP Pulse Ox 36.7 C 78 16 122/81 H 96 12/07/16 17:32 12/07/16 17:32 12/07/16 17:32 12/07/16 17:32 12/07/16 17:32 Constitutional: no apparent distress, not in pain, chronically ill appearing, cachectic, No uncomfortable Eyes: PERRL, anicteric sclera, EOMI Ears, Nose, Mouth, Throat: moist mucous membranes, hearing normal, ears appear normal, no oral mucosal ulcers Cardiovascular: regular rate and rhythym, no murmur, rub, or gallop, No edema Respiratory: no respiratory distress, no rales or rhonchi, clear to auscultation Gastrointestinal: normoactive bowel sounds, soft, non-tender abdomen, no palpable masses, No distension Genitourinary: no bladder fullness, no bladder tenderness Musculoskeletal: other (prox muscle wasting) Neurologic: AAOx3, sensation intact bilaterally, No weakness (motor 5/5 bilat) Psychiatric: not encephalopathic, anxious, other (concentration 7/7, perseverating w/o insight), No agitated Lab Data & Imaging Review 12/07/16 15:16 12/07/16 15:16 WBC 15.38 10^3/uL (3.80-9.50) H 12/07/16 15:16 RBC 3.90 10^6/uL (4.18-5.33) L 12/07/16 15:16 Hgb 11.5 g/dL (12.6-16.3) L 12/07/16 15:16 POC Hgb 12.6 gm/dL (12.6-16.3) 12/07/16 15:14 Hct 35.1 % (38.0-47.0) L 12/07/16 15:16 POC Hct 37 % (38-47) L 12/07/16 15:14 MCV 90.0 fL (81.5-99.8) 12/07/16 15:16 MCH 29.5 pg (27.9-34.1) 12/07/16 15:16 MCHC 32.8 g/dL (32.4-36.7) 12/07/16 15:16 RDW 12.7 % (11.5-15.2) 12/07/16 15:16 Plt Count 547 10^3/uL (150-400) H 12/07/16 15:16 MPV 9.3 fL (8.7-11.7) 12/07/16 15:16 Neut % (Auto) 76.1 % (39.3-74.2) H 12/07/16 15:16 Lymph % (Auto) 15.5 % (15.0-45.0) 12/07/16 15:16 Stan[place]aus % (Auto) 7.2 % (4.5-13.0) 12/07/16 15:16 Eos % (Auto) 0.1 % (0.6-7.6) L 12/07/16 15:16 Baso % (Auto) 0.4 % (0.3-1.7) 12/07/16 15:16 Nucleat RBC Rel Count 0.0 % (0.0-0.2) 12/07/16 15:16 Absolute Neuts (auto) 11.70 10^3/uL (1.70-6.50) H 12/07/16 15:16 Absolute Lymphs (auto) 2.39 10^3/uL (1.00-3.00) 12/07/16 15:16 Absolute Monos (auto) 1.11 10^3/uL (0.30-0.80) H 12/07/16 15:16 Absolute Eos (auto) 0.01 10^3/uL (0.03-0.40) L 12/07/16 15:16 Absolute Basos (auto) 0.06 10^3/uL (0.02-0.10) 12/07/16 15:16 Absolute Nucleated RBC 0.00 10^3/uL (0-0.01) 12/07/16 15:16 Immature Gran % 0.7 % (0.0-1.1) 12/07/16 15:16 Immature Gran # 0.11 10^3/uL (0.00-0.10) H 12/07/16 15:16 POC Sodium 136 mEq/L (134-144) 12/07/16 15:14 Sodium 132 mEq/L (134-144) L 12/07/16 15:16 POC Potassium 4.2 mEq/L (3.3-5.0) 12/07/16 15:14 Potassium 4.6 mEq/L (3.5-5.2) 12/07/16 15:16 POC Chloride 100 mEq/L (97-110) 12/07/16 15:14 Chloride 100 mEq/L (97-110) 12/07/16 15:16 Carbon Dioxide 25 mEq/l (22-31) 12/07/16 15:16 Anion Gap 7 mEq/L (8-16) L 12/07/16 15:16 POC BUN 11 mg/dL (7-23) 12/07/16 15:14 BUN 12 mg/dL (7-23) 12/07/16 15:16 Creatinine 0.8 mg/dL (0.6-1.0) 12/07/16 15:16 POC Creatinine 0.9 mg/dL (0.6-1.0) 12/07/16 15:14 Estimated GFR > 60 12/07/16 15:16 Glucose 83 mg/dL (70-100) 12/07/16 15:16 POC Glucose 89 mg/dL (70-100) 12/07/16 15:14 Calcium 9.0 mg/dL (8.5-10.4) 12/07/16 15:16 Visualized and Interpreted Chest x-ray results: Yes Chest X-Ray results: no infiltrate (hyperinflated) Visualized and Interpreted EKG results: Yes EKG Interpretation: Positive for: normal sinsus rhythm Assessment & Plan Assessment: 86 yo F p/w acute hyponatremia in setting of anorexia, colitis Plan: # Hyponatremia. Acute, 2/2 hypovolemia and poor oral intake - give NS 100cc/hr, repeat sNa in AM # Anorexia. Acute, new problem, further w/u indicated. Unclear etiology, has many pro-inflammatory markers (outside records reviewed including ESR 70, CRP 124, LDH nl, LA elevated from 12/04/16) as well as anemia of chronic inflammatory disease (iron 21, TIBC 175, sat 12%, and ferritin elevated at 540) , and it is unclear whether this is all 2/2 atypical symptoms of Crohn's disease vs. other malignant process vs. upper GI issue (PUD) - d/w Dr. 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 D/w Dr. Mims, he does not believe that this is the primary cause of above - will get UA/spotProtein to gauge whether there is active renal involvement # Severe protein calorie malnutrition. Low BMI 17, prox muscle wasting, get dietary/ensure # Dementia. Mild, perseverates w/ poor insight at baseline, monitor for signs of acute exacerbation, HS melatonin Diet. Regular w/ ensure PPx. High risk, lovenox 40 Code. Full per patient, MDPOA Dispo. ADD uncertain, anticipated LOS > 48hrs warranting inpatient admission status for reasonable medical necessity including severe anorexia w/ weight loss , hyponatremia, physical weakness.
[2016-12-07] MEDS: NS 1,000 ML IV SCH (18:09)
[2016-12-07 18:39] LABS: COLOR YELLOW; LEUKOCYTE ESTERASE,URINE NEGATIVE (NEGATIVE); NITRITE,URINE NEGATIVE (NEGATIVE)
[2016-12-07 18:46] LABS: BACTERIA TRACE /hpf (NONE SEEN); MUCUS TRACE /lpf (NONE-1+)
[2016-12-07] MEDS: PANTOPRAZOLE SODIUM 40 MG TAB PO SCH (20:27)
[2016-12-07] MEDS: SUCRALFATE 1 GM TAB PO SCH (20:27)
[2016-12-08 05:32] LABS: % IMMATURE GRANULYOCYTES 0.7 % (0.0-1.1); ABSOLUTE IMMATURE GRANULOCYTES 0.11 10^3/uL (0.00-0.10); ADD DIFF? NO; ADD MORPH? NO; ADD SCAN? NO; ATYPICAL LYMPHOCYTE FLAG 10 (0-99); FRAGMENT RBC FLAG 0 (0-99); HEMATOCRIT 26.3 % (38.0-47.0); HEMOGLOBIN 8.7 g/dL (12.6-16.3); LEFT SHIFT FLG 30 (0-99); LIPEMIA HEMOLYSIS FLAG 80 (0-99); MEAN CELL HEMOGLOBIN 29.8 pg (27.9-34.1); MEAN CELL HEMOGLOBIN CONCENTR. 33.1 g/dL (32.4-36.7); MEAN CELL VOLUME 90.1 fL (81.5-99.8); MEAN PLATELET VOLUME 9.3 fL (8.7-11.7); PLATELET CLUMPS FLAG 0 (0-99); PLATELET COUNT 475 10^3/uL (150-400); RED BLOOD CELL COUNT 2.92 10^6/uL (4.18-5.33); RED CELL DISTRIBUTION WIDTH 12.5 % (11.5-15.2)
[2016-12-08 05:41] LABS: ALANINE AMINOTRANSFERASE 21 IU/L (9-52); ALBUMIN 2.2 g/dL (3.5-5.0); ALKALINE PHOSPHATASE 69 IU/L (38-126); ANION GAP 9 mEq/L (8-16); ASPARTATE AMINOTRANSFERASE 10 IU/L (14-46); BILIRUBIN,TOTAL 0.3 mg/dL (0.1-1.4); CALCIUM 7.8 mg/dL (8.5-10.4); CARBON DIOXIDE 20 mEq/l (22-31); CHLORIDE 105 mEq/L (97-110); CREATININE 0.7 mg/dL (0.6-1.0); GLOMERULAR FILTRATION RATE > 60; GLUCOSE 86 mg/dL (70-100); SODIUM 134 mEq/L (134-144); TOTAL PROTEIN 4.9 g/dL (6.3-8.2)
[2016-12-08] MEDS: MULTIVITAMINS 1 EACH TAB PO SCH (09:14)
[2016-12-08] MEDS: SUCRALFATE 1 GM TAB PO SCH ×4 (09:14→20:48)
[2016-12-08] MEDS: PANTOPRAZOLE SODIUM 40 MG TAB PO SCH ×2 (09:14→20:48)
[2016-12-08] MEDS: BIFIDOBACTERIUM INFANTIS 4 MG PO SCH (09:18)
[2016-12-08] MEDS: ENOXAPARIN 40 MG/0.4 ML SYR SC SCH (11:49)
[2016-12-08 14:42] LABS: HEMATOCRIT 31.7 % (38.0-47.0); HEMOGLOBIN 10.2 g/dL (12.6-16.3)
--- NOTE | 2016-12-08 15:16 | HOSPPROG ---
Hospitalist Progress Note Assessment/Plan: 86 yo F with PMH of RA, Crohn's disease presenting with approximately 6 months of poor PO intake, significant fatigue and overall what sounds like failure to thrive # FTT: patient has had what sounds like a subacute decline as described by her with essentially 6 months of worsening appetite to the point where he believes she only eats about 1-200 calories per day, increased fatigue sleeping nearly all day and night and generalized weakness. He feels as if it had been getting worse since she was discontinued on remicade by her GI doctor 1.5 years ago and then got significantly worse after getting PNA 6 months ago. Patient states this is because "I'm old" but feels there are other factors contributing. W/u for secondary etiology of FTT including GI eval as next, TSH/ B12 recently checked and are wnl, given RA/Crohn's will check ESR/CRP. Has had normal echo recently and no e/o CHF. 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 # anorexia: in setting of above, patient states she is minimally able to eat but denies pain/dysphagia etc. Query possibility of occult GB disease and will get RUQ US to eval for stone (not noted on CT) and HIDA if that is normal. 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 Dietary involved. Denies depression # hyponatremia: 2/2 hypovolemia, resolved # colitis/crohn's disease: has had hx of this, previously on Remicade and now on no medications, followed by Dr. Waddell who is aware of her hospitalization. 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 Consider formal GI consultation if no other etiology found. # anemia: mild but with decrease in h/h overnight that was likely lab error, repeat h/h back to baseline. Iron studies consistent with anemia of chronic disease in setting of chronic Crohn's and RA # RA: not on any chronic medication for this, again will check inflammatory markers, plt count is elevated # MGUS: this has been followed by Dr. Mims, not felt to be contributing to her subacute decline # simple ovarian cysts/stable uterine fibroids: noted incidentally on imaging, nothing that appears likely to be contributing # SPCM: with BMI of 18, very poor po intake, asking for dietary to get involved/ calorie counts # IP status, will need > 48 hours stay for eval/mgmt of above Patient new to my care. Old records reviewed and summarized as above. Care plan reviewed at length with present at bedside, >60 minutes spent in direct face to face counseling of patient and her from [id number] and again from 330 to 345 Subjective: patient is somnolent, no significant overnight events, she denies pain, when asked when she does not eat she states it is because she is old and not going to live forever Objective: Vital Signs Temp Pulse Resp BP Pulse Ox 37.0 C 82 18 120/62 95 12/08/16 15:02 12/08/16 15:02 12/08/16 15:02 12/08/16 15:02 12/08/16 15:02 Laboratory Results 12/08/16 14:30 12/08/16 05:11 12/07/16 12/08/16 12/09/16 05:59 05:59 05:59 Intake Total 1000 1036 Output Total 440 200 Balance 560 836 frail elderly f, somnolent but arousable anicteric op clear rrr no mrg cta b soft nt nd no cce warm dry well perfused oriented appropriate, diffusely weak, very somnolent ICD10 Worksheet Patient Problems: Problems Problem Status Onset Failure to thrive Acute C. difficile diarrhea Acute 10/26/15 Chronic Disease Mgmt/Transitional Care Acute Community acquired pneumonia Acute Leukocytosis Acute Syncope Acute
[2016-12-08] MEDS ORDERED: MEGESTROL PO SCH (16:00)
[2016-12-08] MEDS ORDERED: ALTEPLASE 2 MG VIAL IVP PRN (17:40)
[2016-12-08] MEDS: MEGESTROL ACETATE 40 MG TAB PO SCH ×2 (18:19→20:49)
[2016-12-08] MEDS: NS 1,000 ML IV SCH (23:23)
[2016-12-09] MEDS: MEGESTROL ACETATE 40 MG TAB PO SCH ×4 (05:01→20:56)
[2016-12-09 05:25] LABS: % IMMATURE GRANULYOCYTES 0.8 % (0.0-1.1); ABSOLUTE IMMATURE GRANULOCYTES 0.11 10^3/uL (0.00-0.10); ADD DIFF? NO; ADD MORPH? NO; ADD SCAN? NO; ATYPICAL LYMPHOCYTE FLAG 0 (0-99); FRAGMENT RBC FLAG 0 (0-99); HEMATOCRIT 26.5 % (38.0-47.0); HEMOGLOBIN 8.7 g/dL (12.6-16.3); LEFT SHIFT FLG 60 (0-99); LIPEMIA HEMOLYSIS FLAG 80 (0-99); MEAN CELL HEMOGLOBIN 29.8 pg (27.9-34.1); MEAN CELL HEMOGLOBIN CONCENTR. 32.8 g/dL (32.4-36.7); MEAN CELL VOLUME 90.8 fL (81.5-99.8); MEAN PLATELET VOLUME 9.1 fL (8.7-11.7); PLATELET CLUMPS FLAG 30 (0-99); PLATELET COUNT 448 10^3/uL (150-400); RED BLOOD CELL COUNT 2.92 10^6/uL (4.18-5.33); RED CELL DISTRIBUTION WIDTH 12.7 % (11.5-15.2)
[2016-12-09] MEDS: SUCRALFATE 1 GM TAB PO SCH ×4 (07:53→20:56)
[2016-12-09] MEDS: PANTOPRAZOLE SODIUM 40 MG TAB PO SCH ×2 (07:54→20:57)
[2016-12-09] MEDS: ENOXAPARIN 40 MG/0.4 ML SYR SC SCH (10:10)
[2016-12-09] MEDS: NS 1,000 ML IV SCH (10:10)
[2016-12-09] MEDS: MULTIVITAMINS 1 EACH TAB PO SCH (10:18)
[2016-12-09] MEDS: BIFIDOBACTERIUM INFANTIS 4 MG PO SCH (11:24)
[2016-12-09] MEDS ORDERED: SINCALIDE 5 MCG VIAL IJ ONE (12:05)
--- NOTE | 2016-12-09 14:21 | PDANEPAE ---
ANE History of Present Illness 86 YEAR OLD female with anemia and recent weight loss/failure to thrive. ANE Past Medical History Past Medical History: No URI/fever x2 weeks. - Pulmonary History Hx Oxygen in Use at Home: No Hx Sleep Apnea: No Sleep Apnea Screening Result - Last Documented: Negative - Endocrine History Hx Diabetes: No - Neurological & Psychiatric Hx Hx Neurological and Psychiatric Disorders: Yes Neurological / Psychiatric History Comment: dementia - GI History Hx Gastrointestinal Disorders: Yes Gastrointestinal History Comment: possible Crohn's disease; recent anorexia - Chronic Pain History Chronic Pain: No ANE Review of Systems - Systems Constitutional: Reports: malaise, weakness ANE Patient History - Allergies Allergies/Adverse Reactions: No Known Allergies Allergy (Verified 12/07/16 12:48) - Home Medications Home medications: home medication list seen and reviewed Home Medications: Bifidobacterium Infantis [Align] 4 mg PO DAILY 12/07/16 [Last Taken 12/06/16] Multivitamins [Multivitamin (*)] 1 each PO DAILY 12/07/16 [Last Taken 12/06/16] - NPO status NPO Since - Liquids (Date): 12/08/16 NPO Since - Liquids (Time): 19:00 NPO Since - Solids (Date): 12/08/16 NPO Since - Solids (Time): 19:00 - Anes Hx Anes Hx: no prior problems - Smoking Hx Smoking Status: Never smoked - Alcohol Use Alcohol Use: None - Family Anes Hx Family Anes Hx: none ANE Labs/Vital Signs - Labs Result Diagrams: 12/09/16 05:00 12/08/16 05:11 - Vital Signs Blood Pressure: 110/48 Heart Rate: 84 Respiratory Rate: 16 O2 Sat (%): 95 Height: 152.4 cm Weight: 42.6 kg ANE Physical Exam - Airway Neck exam: FROM Mallampati Score: Class 3 Mouth exam: normal dental/mouth exam - Pulmonary Pulmonary: clear to auscultation (distant breath sounds) - Cardiovascular Cardiovascular: regular rate and rhythym - ASA Status ASA Status: III ANE Anesthesia Plan Total IV Anesthesia: TIVA
[2016-12-09] MEDS ORDERED: LIDOCAINE 2% 5 ML SDV ONE (14:28)
[2016-12-09] MEDS ORDERED: PROPOFOL 200 MG/20 ML VIAL ONE (14:28)
--- NOTE | 2016-12-09 14:39 | POSTOPPROG ---
Post Op Note Date of Operation: 12/09/16 Surgeon: Dusty Waddell Anesthesia: IV Sedation Pre-op Diagnosis: anorexia Post-op Diagnosis: mild gastritis, hiatal hernia Procedure: EGD/biopsies Inf/Abcess present in the surg proc area at time of surgery?: No Specimen(s): Bogdan
[2016-12-09] MEDS ORDERED: NALOXONE HCL 0.4 MG/ML INJ IVP PRN (14:51)
[2016-12-09] MEDS ORDERED: fentaNYL 100 MCG/2 ML INJ IVP PRN (14:51)
[2016-12-09] MEDS ORDERED: ONDANSETRON 4 MG/2 ML VIAL IVP PRN (14:51)
[2016-12-09] MEDS ORDERED: ALBUTEROL 3 ML DEYVIAL IH PRN (14:51)
[2016-12-09] MEDS ORDERED: ACETAMINOPHEN 500 MG TAB PO PRN (14:51)
--- NOTE | 2016-12-09 14:53 | POSTANESTH ---
Post Anesthetic Evaluation Cardiovascular Status: Normal, Stable Respiratory Status: Normal, Stable Level of Consciousness/Mental Status: Other, See Comment (Pt is demented and extremely hard of hearing. Difficult to communicate.) Pain Control: Adequate, Prn Tx Ordered Nausea/Vomiting Control: Adequate, Prn Tx Ordered Complications Possibly Related to Anesthesia: None Noted
--- NOTE | 2016-12-09 15:37 | HOSPPROG ---
Hospitalist Progress Note Assessment/Plan: 86 yo F with PMH of RA, Crohn's disease presenting with approximately 6 months of poor PO intake, significant fatigue and overall what sounds like failure to thrive # FTT: patient has had what sounds like a subacute decline as described by her with essentially 6 months of worsening appetite to the point where he believes she only eats about 1-200 calories per day, increased fatigue sleeping nearly all day and night and generalized weakness. W/u thus far unrevealing for primary etiology, patient herself believes it is due to "getting old" and that she is "not going to live forever" but hoping for a cure. TSH, B12, cortisol all wnl. W/u for anorexia as next. Discussed trial or ritalin to try to help with sleepiness which has been profound. No concerns for depression or dementia per and patient. 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 Will ask palliative care to get involved. # anorexia: in setting of above, no organic etiology found thus far other than e /o gastritis and hiatal hernia--treating for possible PUD. Dietary and SENIOR DRAFTER involved. Started on megace. Given sleepiness reluctant to try remeron, could consider marinol. # hyponatremia: 2/2 hypovolemia, resolved # colitis/crohn's disease: has had hx of this, previously on Remicade and now on no medications, followed by Dr. Waddell who is aware of her hospitalization. 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 Chronically elevated inflammatory markers. Reviewed with GI who does not feel that at this time colonoscopy would be very helpful. Does not have significant diarrhea concerning for flare. Could consider steroids but in discussion with GI this is unlikely to be helpful. Could consider if her sxs do not improve. # anemia: mild but with decrease in h/h overnight that was likely lab error, repeat h/h back to baseline. Iron studies consistent with anemia of chronic disease in setting of chronic Crohn's and RA # RA: not on any chronic medication for this, again will check inflammatory markers, plt count is elevated # MGUS: this has been followed by Dr. 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 Waddell including plan for continued tx of presumed PUD. Subjective: no significant overnight events, still very sleepy, no issues with procedures performed today Objective: Vital Signs Temp Pulse Resp BP Pulse Ox 36.8 C 84 18 118/57 L 98 12/09/16 14:44 12/09/16 14:21 12/09/16 15:16 12/09/16 15:16 12/09/16 15:25 Laboratory Results 12/09/16 05:00 12/08/16 05:11 12/08/16 12/09/16 12/10/16 05:59 05:59 05:59 Intake Total 1000 1036 350 Output Total 440 1700 0 Balance 560 -664 350 frail elderly f, somnolent but arousable anicteric op clear rrr no mrg cta b soft nt nd no cce warm dry well perfused oriented appropriate, diffusely weak, very somnolent - Time Spent With Patient Time Spent with Patient: greater than 35 minutes Time Spent with Patient: Greater than 35 minutes spent on this patients care, greater than 50% of time spent counseling, educating, and coordinating care regarding the above mentioned plan. ICD10 Worksheet Patient Problems: Problems Problem Status Onset Failure to thrive Acute Generalized weakness Acute C. difficile diarrhea Acute 10/26/15 Chronic Disease Mgmt/Transitional Care Acute Community acquired pneumonia Acute Leukocytosis Acute Syncope Acute
[2016-12-09] MEDS: predniSONE 20 MG TAB PO SCH (18:38)
--- NOTE | 2016-12-09 19:47 | GPN ---
[f rep st] PROCEDURE NOTE INDICATIONS: This patient is an 86-year-old female, admitted with failure to thrive and anorexia, although she claims to have a good appetite. The patient carries a diagnosis of Crohn's ileocolitis and has been off therapy for the past year, has not had any significant symptoms related to it. Ultrasound is negative. HIDA scan is negative. Endoscopy is being requested to rule out upper GI causes for her symptoms. DESCRIPTION OF PROCEDURE: After proper consent was obtained, patient placed in left lateral decubitus position and given IV general anesthesia. Her ASA class was 3. Video gastroscope was introduced through the mouth, down the esophagus, in the stomach, past the pylorus, into the duodenum. FINDINGS: 1. Esophagus is normal. 2. A 2 cm hiatal hernia is noted. 3. Stomach has minimal gastritis pattern noted. Biopsies were taken to rule out H pylori. 4. Duodenum is normal. 5. No evidence of any obstruction is noted. At this point, instrument was removed. Patient tolerated procedure well. She was transferred to the recovery room in stable condition. RECOMMENDATIONS: The patient will continue on therapy for peptic ulcer disease. If H pylori is present, I will treat accordingly. At this point, I see no reason to workup the remainder of the GI tract. We should also consider an appetite stimulant. /[id number]/MODL MTDD
[2016-12-09] MEDS: DRONABINOL 2.5 MG CAP PO SCH (20:56)
[2016-12-10] MEDS: NS 1,000 ML IV SCH (03:23)
[2016-12-10] MEDS: MEGESTROL ACETATE 40 MG TAB PO SCH ×2 (05:12→15:51)
[2016-12-10 05:43] LABS: ADD MORPH? NO; ADD SCAN? YES; ATYPICAL LYMPHOCYTE FLAG 0 (0-99); FRAGMENT RBC FLAG 0 (0-99); HEMATOCRIT 27.9 % (38.0-47.0); HEMOGLOBIN 9.3 g/dL (12.6-16.3); LIPEMIA HEMOLYSIS FLAG 80 (0-99); MEAN CELL HEMOGLOBIN 29.6 pg (27.9-34.1); MEAN CELL HEMOGLOBIN CONCENTR. 33.3 g/dL (32.4-36.7); MEAN CELL VOLUME 88.9 fL (81.5-99.8); MEAN PLATELET VOLUME 9.4 fL (8.7-11.7); PLATELET CLUMPS FLAG 0 (0-99); PLATELET COUNT 438 10^3/uL (150-400); RED BLOOD CELL COUNT 3.14 10^6/uL (4.18-5.33); RED CELL DISTRIBUTION WIDTH 12.7 % (11.5-15.2)
[2016-12-10 06:11] LABS: LEFT SHIFT FLG 130 (0-99)
[2016-12-10 06:37] LABS: ADD DIFF? YES; SCAN POSITIVE
[2016-12-10 06:49] LABS: PLATELET ESTIMATE ADEQUATE (ADEQ); TOXIC GRANULATION PRESENT
[2016-12-10] MEDS ORDERED: BIFIDOBACTERIUM INFANTIS 4 MG PO SCH (09:00)
[2016-12-10] MEDS: predniSONE 20 MG TAB PO SCH (10:04)
[2016-12-10] MEDS: DRONABINOL 2.5 MG CAP PO SCH (10:04)
[2016-12-10] MEDS: SUCRALFATE 1 GM TAB PO SCH ×2 (10:04→15:51)
[2016-12-10] MEDS: MULTIVITAMINS 1 EACH TAB PO SCH (10:05)
[2016-12-10] MEDS: PANTOPRAZOLE SODIUM 40 MG TAB PO SCH (10:05)
[2016-12-10] MEDS: ENOXAPARIN 40 MG/0.4 ML SYR SC SCH (11:11)
[2016-12-10 12:43] VITALS: BP 105/54; PULSE 80; RESP 18; TEMP 97.3; O2SAT 93
--- NOTE | 2016-12-10 12:45 | HOSPPROG ---
Hospitalist Progress Note Assessment/Plan: 86 yo F with PMH of RA, Crohn's disease presenting with approximately 6 months of poor PO intake, significant fatigue and overall what sounds like failure to thrive FTT: patient has had what sounds like a subacute decline as described by her with essentially 6 months of worsening appetite to the point where he believes she only eats about 1-200 calories per day, increased fatigue sleeping nearly all day and night and generalized weakness. W/u thus far unrevealing for primary etiology, patient herself believes it is due to "getting old" and that she is "not going to live forever" but hoping for a cure. TSH, B12, cortisol all wnl. W/u for anorexia as next. Discussed trial or ritalin to try to help with sleepiness which has been profound. No concerns for depression or dementia per and patient. PT/OT/RATTAN WORKER/cog eval. Will ask palliative care to get involved. trial of ritalin/marinol/prednisone/megace egd and imaging unremarkable for anorexia: in setting of above, no organic etiology found thus far other than e/ o gastritis and hiatal hernia--treating for possible PUD. Dietary and RATTAN WORKER involved. Started on megace. see above hyponatremia: 2/2 hypovolemia, resolved colitis/crohn's disease: has had hx of this, previously on Remicade and now on no medications, followed by Dr. Waddell who is aware of her hospitalization. 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 Chronically elevated inflammatory markers. Reviewed with GI who does not feel that at this time colonoscopy would be very helpful. Does not have significant diarrhea concerning for flare. see above anemia: mild but with decrease in h/h overnight that was likely lab error, repeat h/h back to baseline. 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 home today Objective: Vital Signs Temp Pulse Resp BP Pulse Ox 36.6 C 79 16 111/64 97 12/10/16 07:59 12/10/16 07:59 12/10/16 07:59 12/10/16 07:59 12/10/16 07:59 Laboratory Results 12/10/16 05:19 12/08/16 05:11 12/09/16 12/10/16 12/11/16 05:59 05:59 05:59 Intake Total 1036 1200 375 Output Total 1700 400 250 Balance -664 800 125 - Physical Exam Constitutional: no apparent distress, appears nourished Eyes: PERRL, anicteric sclera Ears, Nose, Mouth, Throat: moist mucous membranes, hearing normal Cardiovascular: regular rate and rhythym, no murmur, rub, or gallop Respiratory: no respiratory distress, no rales or rhonchi Gastrointestinal: normoactive bowel sounds, soft, non-tender abdomen Genitourinary: no bladder fullness, No arnett in urethra Skin: warm, normal color Musculoskeletal: full muscle strength, no muscle tenderness Neurologic: AAOx3, sensation intact bilaterally Psychiatric: interacting appropriately, not anxious Lymph, Heme, Immunologic: no cervical LAD, no supraclavicular LAD ICD10 Worksheet Patient Problems: Problems Problem Status Onset Failure to thrive Acute Generalized weakness Acute C. difficile diarrhea Acute 10/26/15 Chronic Disease Mgmt/Transitional Care Acute Community acquired pneumonia Acute Leukocytosis Acute Syncope Acute
--- NOTE | 2016-12-10 12:59 | PDPCPN ---
Palliative Care Progress Note Assessment/Plan: Referring provider: Dr Bridges Reason for consult: Complex medical decision making Symptom control HPI: Ada Orourke is a 86 yo female with PMH Crohn's disease (Remicade stopped 1 year ago), RA, PNA, and mild dementia admitted to the hospital for anorexia, fatigue, and poor appetite. Medical work up thus far negative for reversible causes. s/p EGD with mild gastritis and hiatal hernia. Calorie count in progress and started on prednisone for possible Crohn's flair. Also added multiple appetite stimulants to help. Palliative care consulted for complex medical decision making. Met with Nicholas at the bedside this morning. He stated Ada was much improved today being more awake and wanting to eat some more. He said he has been speaking with family and the doctors about what could be wrong with Ada and understands she may or may not improve. He is hoping with the new medications her FTT will improve and she will begin to eat again. We spoke about if she continues to decline what might be the goal and he stated then they might consider hospice care. Also discussed code status with being very clear they would not want medical interventions if there was a very poor outcome. Discussed having outpatient palliative care follow for continued symptom management of poor appetite and fatigue and was agreeable. Assessment: Physical: - Pain: none noted -tylenol PRN - Poor appetite: - started on megace, prednisone, and ritalin - marinol can sometimes cause some sleepiness so monitor. - Weakness - nursing support - PT/OT as able - getting prednisone and ritalin as above Emotional/psychological: Doing ok. Has a lot of support from [facility] Planning: Is patient decisional?: Yes with help Code Status: DNR- confirmed today they both would not want medical interventions if the outcome was expected to be poor POA: Nicholas is MDPOA. Plan: Return home when medically ready. Will have outpt Javier palliative care follow up for support at home. understands this FTT may not reverse and could result in Ada being near end of life. Subjective: I'm not that hungry Objective: Social History: to Nicholas. Lives at the [place]. 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 Enjoys work out classes and being social. Medication list reviewed ROS: General: fatigue, weakness, weight loss ENT: negative Resp: negative GI: poor appetite : negative MS: negative Skin: negative Neuro: negative Psych: some confusion Functional assessment: PPS: 50% Functional status: needs some assistance with ADLs Vital Signs Temp Pulse Resp BP Pulse Ox 36.3 C 80 18 105/54 L 93 12/10/16 12:00 12/10/16 12:00 12/10/16 12:00 12/10/16 12:00 12/10/16 12:00 Laboratory Results 12/10/16 05:19 12/08/16 05:11 12/09/16 12/10/16 12/11/16 05:59 05:59 05:59 Intake Total 1036 1200 375 Output Total 1700 400 250 Balance -664 800 125 Physical Exam - Physical Exam General Appearance: alert, no apparent distress Respiratory: No respiratory distress, No accessory muscle use Skin: normal color, warm/dry Extremities: No pedal edema Neuro/Psych: alert, oriented x 3 ICD10 Worksheet Patient Problems: Problems Problem Status Onset Failure to thrive Acute Generalized weakness Acute Palliative care encounter Acute C. difficile diarrhea Acute 10/26/15 Chronic Disease Mgmt/Transitional Care Acute Community acquired pneumonia Acute Leukocytosis Acute Syncope Acute - ICD10 Problem Qualifiers (1) Palliative care encounter
--- NOTE | 2016-12-10 15:03 | GDS ---
[f rep st] DISCHARGE SUMMARY DISCHARGE DIAGNOSES: 1. Failure to thrive with weight loss. 2. Chronically elevated inflammatory markers. 3. Anorexia with food avoidance. 4. History of Crohn disease, noted to be atypical Crohn's. 5. Anemia, presumed of chronic disease. PROCEDURES THIS ADMISSION: EGD which showed hiatal hernia and mild gastritis. Please see admission history and physical by Dr. Jamarcus Lee. The patient presented with failure to thrive and poor p.o . intake, getting about 100 calories in a day. She was not particularly volume depleted. She had a lbumin that has fallen 3 a month ago and 4 at the beginning of the year to 2.2. She does not have e cortez. She does not have liver disease. She had an abdominal CT which is relatively unremarkable an d certainly had no smoking gun. She had an EGD which was also unremarkable. Additionally, she had an abdominal ultrasound and nuclear scan which were with no evidence of hepatobiliary disease. There was a palliative care consult which transitioned her to DNR. She was started empirically on p rednisone, Ritalin, Marinol, and Megace. She is discharged home with outpatient followup. /[id number]/MODL
--- NOTE | 2016-12-10 15:58 | PDIAF ---
- Diagnosis Diagnosis: FTT Code Status: Do Not Resuscitate - Medication Management Discharge Medications: Medications to Continue on Transfer Bifidobacterium Infantis [Align] 4 mg PO DAILY 12/07/16 [Last Taken 12/06/16] Multivitamins [Multivitamin (*)] 1 each PO DAILY 12/07/16 [Last Taken 12/06/16] Dronabinol [Marinol 2.5 MG (*)] 2.5 mg PO BID #60 cap 12/10/16 [Last Taken Unknown] Megestrol Acetate [Megace 40 mg (*)] 40 mg PO QID #120 tab 12/10/16 [Last Taken Unknown] Methylphenidate HCl [Ritalin 5mg (*)] 5 mg PO DAILY #30 tab 12/10/16 [Last Taken Unknown] Pantoprazole Sodium [Protonix 40mg (*)] 40 mg PO BID #60 tab 12/10/16 [Last Taken Unknown] Sucralfate [Carafate 1 GM (*)] 1 gm PO ACHS #120 tab 12/10/16 [Last Taken Unknown] predniSONE 40 mg PO DAILY #30 tablet 12/10/16 [Last Taken Unknown] Discharge Medications: Refer to the Discharge Home Medication list for PRN reason. - Orders Services needed: Home Retirement Care Face to Face: I certify that this patient was under my care and that I had the required [id number] encounter meeting the encounter requirements on the discharge day. My findings support the fact that the patient is homebound as defined in CMS Chapter 7 Medicare Benefits Manual 30.1.1, The condition of the patient is such that there exists a normal inability to leave home and consequently, leaving home would require a considerable and taxing effort. Diet Texture: Regular Texture Diet, Thin Liquids, Meds Whole w/Liquids - Follow Up Care Current Providers and Referrals: Natalya Brambila MD [Primary Care Provider] - As per Instructions
--- NOTE | 2016-12-10 17:13 | PDIAF ---
- Diagnosis Diagnosis: FTT Code Status: Do Not Resuscitate - Medication Management Discharge Medications: Medications to Continue on Transfer Bifidobacterium Infantis [Align] 4 mg PO DAILY 12/07/16 [Last Taken 12/06/16] Multivitamins [Multivitamin (*)] 1 each PO DAILY 12/07/16 [Last Taken 12/06/16] Dronabinol [Marinol 2.5 MG (*)] 2.5 mg PO BID #60 cap 12/10/16 [Last Taken Unknown] Megestrol Acetate [Megace 40 mg (*)] 40 mg PO QID #120 tab 12/10/16 [Last Taken Unknown] Methylphenidate HCl [Ritalin 5mg (*)] 5 mg PO DAILY #30 tab 12/10/16 [Last Taken Unknown] Pantoprazole Sodium [Protonix 40mg (*)] 40 mg PO BID #60 tab 12/10/16 [Last Taken Unknown] Sucralfate [Carafate 1 GM (*)] 1 gm PO ACHS #120 tab 12/10/16 [Last Taken Unknown] predniSONE 40 mg PO DAILY #30 tablet 12/10/16 [Last Taken Unknown] Discharge Medications: Refer to the Discharge Home Medication list for PRN reason. - Orders Services needed: Home Care, Registered Nurse Home Care Face to Face: I certify that this patient was under my care and that I had the required [id number] encounter meeting the encounter requirements on the discharge day. My findings support the fact that the patient is homebound as defined in CMS Chapter 7 Medicare Benefits Manual 30.1.1, The condition of the patient is such that there exists a normal inability to leave home and consequently, leaving home would require a considerable and taxing effort. Diet Texture: Regular Texture Diet, Thin Liquids, Meds Whole w/Liquids - Follow Up Care Current Providers and Referrals: Natalya Brambila MD [Primary Care Provider] - As per Instructions
== END 2016-12-10 17:19 | disposition home health service (06) | DRG 640 ==
LOC: F3E 17:38
PROVIDERS: ADMIT Internal Medicine; ATTEND Internal Medicine
PROC: 02HV33Z Insertion of Infusion Device into Superior Vena Cava, Percutaneous Approach (ICD-10-PCS; 2016-12-08)
PROC: 0DJ08ZZ Inspection of Upper Intestinal Tract, Via Natural or Artificial Opening Endoscopic (ICD-10-PCS; principal; 2016-12-09 14:15)
PROC: 0DB68ZX Excision of Stomach, Via Natural or Artificial Opening Endoscopic, Diagnostic (ICD-10-PCS; principal; 2016-12-09 14:15)
DX: R63.0 Anorexia (principal); F50.89 Other specified eating disorder; R62.7 Adult failure to thrive; E87.1 Hypo-osmolality and hyponatremia; E43 Unspecified severe protein-calorie malnutrition; Z68.1 Body mass index [BMI] 19.9 or less, adult; D63.8 Anemia in other chronic diseases classified elsewhere; K50.90 Crohn's disease, unspecified, without complications; K44.9 Diaphragmatic hernia without obstruction or gangrene; F03.90 Unspecified dementia, unspecified severity, without behavioral disturbance, psychotic disturbance, mood disturbance, and anxiety
CPT/HCPCS: 82947-QW; 92507-GN; 92523-GN; 92610-GN; 97116-GP; 97162-GP; A9537; C1751; G8978-GP-CI; G8979-GP-CI; G8996-GN-CH; G8997-GN-CH; G8998-GN-CH; G9168-GN-CJ; G9169-GN-CI; J1650; J2704; Q9967

== ENCOUNTER 2017-07-18 16:39 | Emergency (ER) | payer OTHER ==
--- NOTE | 2017-07-18 16:45 | EDPHY ---
H & P Source: Patient Exam Limitations: No limitations - Medical/Surgical History Hx Asthma: No Hx Chronic Respiratory Disease: No Hx Diabetes: No Hx Cardiac Disease: No Hx Renal Disease: No Hx Cirrhosis: No Hx Alcoholism: No Hx HIV/AIDS: No Hx Splenectomy or Spleen Trauma: No Other PMH: Crohns w/remicaide infusions, PNA; c-diff - Social History Smoking Status: Never smoked Time Seen by Provider: 07/18/17 16:44 HPI/ROS: HPI: This is an 87-year-old female who presents with Chief Complaint: Nausea, elevated blood pressure Location: GI Quality: Nausea Duration: 3-5 hours prior to arrival Signs and Symptoms: no fever, + nausea, no vomiting, no hematemesis, no blood in stool, no abdominal bloating, no diarrhea, no back pain, no urinary symptoms , no vaginal bleeding, no indigestion, no chest pain, no shortness of breath, no chills Timing: Acute, resolved Severity: Mild Context: History of Crohn's with Remicade infusions and C diff colitis presents with 1 episode of nausea early this morning that self resolved. Denies any blood in stool/abdominal pain/vomiting/diarrhea/fever/urinary symptoms. [facility] and was noted to have an elevated blood pressure. They recommended that she go to the emergency room to be further evaluated. Patient currently has no complaints and is asking to eat some food as she is extremely hungry. reports that she has been at her baseline other than he has noted intermittent nonproductive cough that is unproductive in nature and worse at night over the last 2 weeks. While [facility] the [facility], they performed a urinalysis and per patient it was normal. Modifying Factors: None Comment: ROS: see HPI Constitutional: No fever, no chills, no weight loss Eyes: No blurred vision Respiratory: No shortness of breath, + cough Cardiovascular: No chest pain, no palpitations Gastrointestinal: No nausea, no vomiting, no diarrhea, no hematemesis, no blood in stool Genitourinary: No dysuria, no blood in urine Extremities: No myalgias, no edema Neurologic: No weakness, no numbness Skin: No rashes, no petechiae Hematologic: No bruising, no bleeding MEDICAL/SURGICAL/SOCIAL HISTORY: Medical history: Crohns w/Remicade infusions, PNA; c-diff Surgical history: Denies Social history: . Retired. CONSTITUTIONAL: Petite, talkative, cooperative elderly white female, at bedside, awake and alert, no obvious distress HEENT: Atraumatic and normocephalic, PERRL, EOMI. Tympanic membranes clear. Oropharynx clear, no exudate and moist pink mucosa. Airway patent. No lymphadenopathy. No meningismus. Cardiovascular: Normal S1/S2, regular rate, regular rhythm, without murmur rub or gallop. PULMONARY/CHEST: Symmetrical and nontender. Clear to auscultation bilaterally. Good air movement. No accessory muscle usage. ABDOMEN: Soft, nondistended, nontender, no rebound, no guarding, no peritoneal signs, no masses or organomegaly. No CVAT. EXTREMITIES: 2/2 pulses, strength 5/5, no deformities, no clubbing, no cyanosis or edema. NEUROLOGICAL: no focal neuro deficits. GCS 15. SKIN: Warm and dry, pallor, no erythema. no rash. Good capillary refill. (Filomena Sanchez) Constitutional: Initial Vital Signs Temperature (C) 99.7 F 07/18/17 16:45 Heart Rate 78 07/18/17 16:45 Respiratory Rate 18 07/18/17 16:45 Blood Pressure 151/90 H 07/18/17 16:45 O2 Sat (%) 93 07/18/17 16:45 O2 Delivery Mode Room Air Allergies/Adverse Reactions: No Known Allergies Allergy (Verified 12/07/16 12:48) Home Medications: Medication Instructions Recorded levOFLOXACIN [levAQUIN (*)] 500 mg PO DAILY #7 tab 07/18/17 Medical Decision Making - Diagnostics Imaging Results: Imaging Impressions Chest X-Ray 07/18/17 16:55 Impression: Mild lingular infiltrate. Clinical correlation and follow-up to assure resolution are recommended. ED Course/Re-evaluation: Patient politely declines repeat urinalysis. She is agreeable to labs and chest x-ray. Blood pressure upon arrival 151/90 No signs of CVA/sepsis/dehydration/anemia Chest x-ray shows mild left-sided lingular infiltrate labs reviewed: minimal leukocytosis No history of lung disease. No hypoxia/respiratory distress. Offered admission to patient and who politely declined and wished to be managed outpatient. Given IV Levaquin and prescription for same. They are to follow up with her primary care provider this week. 181: End of Shift. Signed over to MIRIAM Benito pending results of remaining labs. This patient was seen under the supervision of my secondary supervising physician. I evaluated care for this patient independently. (Filomena Sanchez) Differential Diagnosis: Weakness including but not limited to electrolyte abnormality, depression, anxiety, CVA, spinal cord abnormality, and infectious causes. (Filomena Sanchez) Other Provider: 6:20 p.m. I discussed the case at length with Filomena Sanchez PA-C. I was asked to monitor the return of the patient's laboratory studies, specifically her chemistry. Patient has been diagnosed with pneumonia and is stable for discharge home per MIRIAM Sanchez. She has treatment plan in place. She has discussed this with the patient and the only thing left was her chemistry. This has returned but no significant electrolyte abnormalities. There is a mildly elevated glucose of 136. I discussed this with the patient's with that she may follow up with her primary care physician about this. At this point she is stable for discharge home with prescriptions provided by MIRIAM Sanchez. (Osorio Benito) - Data Points Laboratory Results: Laboratory Results 07/18/17 17:45 07/18/17 17:45 07/18/17 07/18/17 07/18/17 17:45 17:45 17:45 WBC 10.18 10^3/uL H 10^3/uL (3.80-9.50) RBC 4.51 10^6/uL 10^6/uL (4.18-5.33) Hgb 13.0 g/dL g/dL (12.6-16.3) Hct 39.3 % % (38.0-47.0) MCV 87.1 fL fL (81.5-99.8) MCH 28.8 pg pg (27.9-34.1) MCHC 33.1 g/dL g/dL (32.4-36.7) RDW 17.0 % H % (11.5-15.2) Plt Count 341 10^3/uL 10^3/uL (150-400) MPV 10.3 fL fL (8.7-11.7) Neut % (Auto) 89.3 % H % (39.3-74.2) Lymph % (Auto) 7.0 % L % (15.0-45.0) [place] % (Auto) 3.1 % L % (4.5-13.0) Eos % (Auto) 0.0 % L % (0.6-7.6) Baso % (Auto) 0.2 % L % (0.3-1.7) Nucleat RBC Rel Count 0.0 % % (0.0-0.2) Absolute Neuts (auto) 9.09 10^3/uL H 10^3/uL (1.70-6.50) Absolute Lymphs (auto) 0.71 10^3/uL L 10^3/uL (1.00-3.00) Absolute Monos (auto) 0.32 10^3/uL 10^3/uL (0.30-0.80) Absolute Eos (auto) 0.00 10^3/uL L 10^3/uL (0.03-0.40) Absolute Basos (auto) 0.02 10^3/uL 10^3/uL (0.02-0.10) Absolute Nucleated RBC 0.00 10^3/uL 10^3/uL (0-0.01) Immature Gran % 0.4 % % (0.0-1.1) Immature Gran # 0.04 10^3/uL 10^3/uL (0.00-0.10) VBG Lactic Acid 1.1 mmol/L mmol/L (0.7-2.1) Sodium 136 mEq/L mEq/L (135-145) Potassium 4.3 mEq/L mEq/L (3.5-5.2) Chloride 98 mEq/L mEq/L (97-110) Carbon Dioxide 24 mEq/l mEq/l (22-31) Anion Gap 14 mEq/L mEq/L (8-16) BUN 13 mg/dL mg/dL (7-23) Creatinine 0.6 mg/dL mg/dL (0.6-1.0) Estimated GFR > 60 Glucose 136 mg/dL H mg/dL (70-100) Calcium 9.1 mg/dL mg/dL (8.5-10.4) Total Bilirubin 0.5 mg/dL mg/dL (0.1-1.4) Conjugated Bilirubin 0.3 mg/dL mg/dL (0.0-0.5) Unconjugated Bilirubin 0.2 mg/dL mg/dL (0.0-1.1) AST 26 IU/L IU/L (14-46) ALT 32 IU/L IU/L (9-52) Alkaline Phosphatase 73 IU/L IU/L (38-126) Total Protein 8.1 g/dL g/dL (6.3-8.2) Albumin 4.3 g/dL g/dL (3.5-5.0) Medications Given: Levofloxacin/Dextrose (Levaquin 750 Mg (Premix)) 150 mls @ 100 mls/hr IV EDNOW ONE PRN Reason: Protocol Stop: 07/18/17 19:15 Last Admin: 07/18/17 18:08 Dose: 150 mls Departure - Departure Disposition: Home, Routine, Self-Care Clinical Impression: Community acquired pneumonia Qualifiers: Laterality: left Lung location: unspecified part of lung Qualified Code(s): J18.9 - Pneumonia, unspecified organism Condition: Good Instructions: Community Acquired Pneumonia (ED) Additional Instructions: Take Tylenol 650 mg every 4 hours and/or Ibuprofen 600 mg every 8 hours with food as needed for pain/fever. Take Levaquin 500 mg daily x 7 days. Please follow-up with your primary care provider this week. Please wash your hands frequently, cover your cough, and stay home until you are symptom free. Return to the ER immediately if you experience fevers/chills, shortness of breath, abdominal pain, inability to tolerate oral intake, or any other symptoms that concern you. Referrals: PCP Not In,Dictionary [Medical Doctor] - 2-3 days without fail Prescriptions: levOFLOXACIN [levAQUIN (*)] 500 mg PO DAILY #7 tab
[2017-07-18 17:59] LABS: PLATELET COUNT 341 10^3/uL (150-400)
[2017-07-18 18:10] VITALS: RESP 16
[2017-07-18 19:48] VITALS: BP 137/76; PULSE 73; TEMP 98.2; O2SAT 96
== END 2017-07-18 19:46 | disposition home or self-care (01) ==
LOC: EDUNIT#
DX: J18.9 Pneumonia, unspecified organism (principal)
CPT/HCPCS: 71046; 96365; 99284; J1956

== ENCOUNTER 2018-02-23 12:50 | Emergency (ER) | payer OTHER ==
--- NOTE | 2018-02-23 13:09 | EDPHY ---
H & P Time Seen by Provider: 02/23/18 13:04 HPI/ROS: CHIEF COMPLAINT: "I am weak because I missed breakfast" HISTORY OF PRESENT ILLNESS: Patient's is in the hospital on the 3rd floor after a fall. She took the ambulance here today because she said she felt weak because she missed breakfast. She mainly wants food. She does not have any focal weakness in extremities, no pain anywhere, no other complaints. She says she is able to walk. Normal speech and normal thought process. REVIEW OF SYSTEMS: Eye: no change in vision ENT: no sore throat Cardiac: no chest pain or syncope Pulmonary: no cough or SOB Abdomen: no vomiting, diarrhea, abdominal pain Musculoskeletal: no back pain Skin: no rash Neuro: no headache Constitutional: no fever : no urinary symptoms, no dysuria or hematuria. A comprehensive 10 point review of systems is otherwise negative aside from elements mentioned in the history of present illness. PAST MEDICAL HISTORY: Admission from 12/07-12/10/2016 personally reviewed, includes Crohn's disease and hypertension and history of C diff. Social history: , is in the hospital General Appearance: Alert and conversant, cooperative. Eyes: No scleral icterus. ENT, Mouth: Slightly dry mucous membranes. Respiratory: Normal respiratory effort, breath sounds equal, lungs are clear to auscultation. Cardiovascular: Regular rate and rhythm. Gastrointestinal: Abdomen is soft and non tender. Neurological: Alert, face symmetric, normal motor and sensory in extremities. Speech is fluent and normally conversant. Skin: Warm and dry, no rashes. Musculoskeletal: No peripheral edema. Psychiatric: Not agitated. Emergency Department course/MDM: CBC and chemistry, EKG reviewed, food tray ordered. She probably is weak because she missed breakfast and does not appear to have stroke, acute infectious process, ACS, metabolic abnormality 1416: Patient's daughter says she normally runs a elevated white blood cell count. She does not clinically have an infection. No ENT symptoms, no vomiting or diarrhea, no abdominal pain, no cough or hypoxemia. Urinalysis checked. No cellulitis. Ambulatory at this time, to the bathroom, feels better after eating. 1429: Urinalysis negative for nitrates or leukocyte esterase. Daughter emphasize that WBC is often elevated, she is [employer], they would like to have as little medical testing and intervention as possible. I warned that it should be rechecked. I think at this point it is reasonable to have her go join her which is what she wants. UA is reviewed but does not appear to be responsible for WBC of 19,000. Smoking Status: Never smoked Constitutional: Initial Vital Signs Temperature (C) 36.8 C 02/23/18 12:56 Heart Rate 76 02/23/18 12:56 Respiratory Rate 16 02/23/18 12:56 Blood Pressure 131/85 H 02/23/18 12:56 O2 Sat (%) 95 02/23/18 12:56 O2 Delivery Mode Room Air Allergies/Adverse Reactions: No Known Allergies Allergy (Verified 12/07/16 12:48) Medical Decision Making - Diagnostics EKG Interpretation: 12-lead EKG interpreted by me; official reading is in computer system. My interpretation is sinus rhythm rate 75 with low precordial lead voltage otherwise normal. - Data Points Laboratory Results: Laboratory Results 02/23/18 13:28 02/23/18 13:28 02/23/18 02/23/18 02/23/18 14:19 13:28 13:28 WBC 19.86 10^3/uL H 10^3/uL (3.80-9.50) RBC 4.26 10^6/uL 10^6/uL (4.18-5.33) Hgb 13.2 g/dL g/dL (12.6-16.3) Hct 39.4 % % (38.0-47.0) MCV 92.5 fL fL (81.5-99.8) MCH 31.0 pg pg (27.9-34.1) MCHC 33.5 g/dL g/dL (32.4-36.7) RDW 14.0 % % (11.5-15.2) Plt Count 294 10^3/uL 10^3/uL (150-400) MPV 10.9 fL fL (8.7-11.7) Neut % (Auto) 81.8 % H % (39.3-74.2) Lymph % (Auto) 10.6 % L % (15.0-45.0) Davis % (Auto) 6.8 % % (4.5-13.0) Eos % (Auto) 0.1 % L % (0.6-7.6) Baso % (Auto) 0.3 % % (0.3-1.7) Nucleat RBC Rel Count 0.0 % % (0.0-0.2) Absolute Neuts (auto) 16.28 10^3/uL H 10^3/uL (1.70-6.50) Absolute Lymphs (auto) 2.10 10^3/uL 10^3/uL (1.00-3.00) Absolute Monos (auto) 1.35 10^3/uL H 10^3/uL (0.30-0.80) Absolute Eos (auto) 0.01 10^3/uL L 10^3/uL (0.03-0.40) Absolute Basos (auto) 0.05 10^3/uL 10^3/uL (0.02-0.10) Absolute Nucleated RBC 0.00 10^3/uL 10^3/uL (0-0.01) Immature Gran % 0.4 % % (0.0-1.1) Immature Gran # 0.07 10^3/uL 10^3/uL (0.00-0.10) Sodium 140 mEq/L mEq/L (135-145) Potassium 4.1 mEq/L mEq/L (3.3-5.0) Chloride 106 mEq/L mEq/L (97-110) Carbon Dioxide 23 mEq/l mEq/l (22-31) Anion Gap 11 mEq/L mEq/L (6-14) BUN 13 mg/dL mg/dL (7-23) Creatinine 0.8 mg/dL mg/dL (0.6-1.0) Estimated GFR > 60 Glucose 114 mg/dL H mg/dL (70-100) Calcium 9.7 mg/dL mg/dL (8.5-10.4) Urine Color YELLOW Urine Appearance HAZY Urine pH 6.0 (5.0-7.5) Ur Specific [place] 1.018 (1.002-1.030) Urine Protein 1+ H (NEGATIVE) Urine Ketones 1+ H (NEGATIVE) Urine Blood 2+ H (NEGATIVE) Urine Nitrate NEGATIVE (NEGATIVE) Urine Bilirubin NEGATIVE (NEGATIVE) Urine Urobilinogen NEGATIVE EU EU (0.2-1.0) Ur Leukocyte Esterase NEGATIVE (NEGATIVE) Urine RBC 5-10 /hpf H /hpf (0-3) Urine WBC 5-10 /hpf H /hpf (0-3) Ur Epithelial Cells TRACE /lpf /lpf (NONE-1+) Hyaline Casts 5-15 /lpf /lpf (0-1) Urine Mucus TRACE /lpf /lpf (NONE-1+) Urine Glucose NEGATIVE (NEGATIVE) Departure - Departure Disposition: Home, Routine, Self-Care Clinical Impression: Weakness Condition: Good Instructions: Weakness (ED) Additional Instructions: You had an elevated white blood cell count in the emergency department, and should get that rechecked later this week in 48 hr. Referrals: Jocelyne Mckeon MD [[facility] [place] Primary Care Provider] - As per Instructions
--- NOTE | 2018-02-23 13:13 | CPEKG ---
Test Reason : OPEN Blood Pressure : / mmHG Vent. Rate : 075 BPM Atrial Rate : 075 BPM P-R Int : 156 ms QRS Dur : 091 ms QT Int : 396 ms P-R-T Axes : 083 071 046 degrees QTc Int : 443 ms Sinus rhythm Low voltage, precordial leads Confirmed by Rafat Rowley ([id number]) on 02/23/2018 1:12:47 PM Referred By: Confirmed By:Rafat Rowley
[2018-02-23 13:45] LABS: PLATELET COUNT 294 10^3/uL (150-400)
[2018-02-23 14:57] VITALS: BP 136/73
--- NOTE | 2018-02-23 17:42 | ASMTCMCOM ---
CM Note CM Note Notes: Pt presented to the ED via EMS from her Independent Living facility at [facility] ([phone]). Pt's , Nciholas, has recently been admitted to [facility] and is being discharged to a SNF. This CM checked in w/pt and her granddaughter, Eri Moscoso, who was at bedside in the ED, to confirm that pt was safe to return to her Ind Living situation w/o Nicholas being there. Eri states that she recently added on Personalized Living - Care services through [facility] and she feels pt is safe to return home. Pt needs to have her blood work re-checked in the next 48hrs due to her high WBC. Pt was discharged from the ED w/Eri. This CM called the [facility] and spoke w/INA Unger w/their Personalized Living department and she states that the only assistance they have been set up to provide is escorting the pt to and from meals. This CM called Eri ([phone]) and she said she plans on contacting the [facility] and adding on additional care services that include pt being enrolled w/their primary care team so they can order the repeat bloodwork, etc. CM available for further assistance if needed. Date Signed: 02/23/2018 05:41 PM Electronically Signed By:Elizabeth Denton RN
== END 2018-02-23 14:56 | disposition home or self-care (01) ==
LOC: EDUNIT#
DX: R53.1 Weakness (principal); K50.90 Crohn's disease, unspecified, without complications; I10 Essential (primary) hypertension